=== PATIENT | female | born 1950 | race Caucasian/White ===

== ENCOUNTER 2019-01-31 14:35 | Emergency (ER) | payer MEDICARE, OTHER ==
[2019-01-31] MEDS ORDERED: LORATADINE 10 MG TABLET PO ONE (14:58)
[2019-01-31] MEDS ORDERED: PSEUDOEPHEDRINE HCL 30 MG TABLET PO ONE (14:58)
[2019-01-31] MEDS ORDERED: GUAIFENESIN 600 MG TABLET.SA PO ONE (14:58)
[2019-01-31] MEDS ORDERED: ACETAMINOPHEN 325 MG TABLET PO ONE (14:58)
[2019-01-31 14:59] VITALS: BP 137/65
--- NOTE | 2019-01-31 15:03 | ER Document Report ---
ED ENT - General Chief Complaint: Sinus Pain Stated Complaint: POSSIBLE SINUS INFECTION Time Seen by Provider: 01/31/19 14:49 Mode of Arrival: Ambulatory Information source: Patient Notes: 68-year-old female presents to ED for complaint of cough cold congestion sinus pressure times 2 days. She denies any fevers. She is alert oriented respirations regular and unlabored speaking in full sentences in no acute distress. States she has a history of sinus infections and she knows that she is got an sinus infection and needs antibiotics at this time. I have explained to her that it is a viral infection and that antibiotics will just cause side effects to include nausea vomiting or diarrhea. I have treated her with Claritin 10 mg, Sudafed 30 mg, Mucinex 600 mg, and Tylenol 650 mg by mouth. I have instructed her to follow-up with her primary doctor or return to the ED for any increase or change in symptoms. - HPI Patient complains to provider of: Nose problem, Other - Sinus pressure Onset: Yesterday Onset/Duration: Gradual Quality of pain: Achy, Other - Pressure Severity: Moderate Pain Level: 2 Context: Recent Illness Location of pain: Nose, Sinus Associated symptoms: Congestion, Cough, Runny nose, Sinus pain, Sinus drainage Similar symptoms previously: Yes Recently seen / treated by doctor: No - Related Data Allergies/Adverse Reactions: No Known Allergies Allergy (Verified 01/31/19 14:58) Past Medical History - General Information source: Patient - Social History Smoking Status: Never Smoker Frequency of alcohol use: None Drug Abuse: None Lives with: Family Family History: Reviewed & Not Pertinent Patient has suicidal ideation: No Patient has homicidal ideation: No - Past Medical History Cardiac Medical History: Reports: None Pulmonary Medical History: Reports: None EENT Medical History: Reports: None Neurological Medical History: Reports: None Endocrine Medical History: Reports: Hx Hypothyroidism Renal/ Medical History: Reports: None Malignancy Medical History: Reports: None GI Medical History: Reports: None Musculoskeletal Medical History: Reports None Skin Medical History: Reports None Psychiatric Medical History: Reports: None Traumatic Medical History: Reports: None Infectious Medical History: Reports: None Surgical Hx: Negative Past Surgical History: Reports: None - Immunizations Immunizations up to date: Yes Hx Diphtheria, Pertussis, Tetanus Vaccination: Yes Review of Systems - Review of Systems Constitutional: No symptoms reported EENT: Nose discharge, Sinus pressure, Sinus discharge Cardiovascular: No symptoms reported Respiratory: Cough Gastrointestinal: No symptoms reported Genitourinary: No symptoms reported Female Genitourinary: No symptoms reported Musculoskeletal: No symptoms reported Skin: No symptoms reported Hematologic/Lymphatic: No symptoms reported Neurological/Psychological: No symptoms reported -: Yes All other systems reviewed and negative Physical Exam - Vital signs Vitals: Temp Pulse Resp BP Pulse Ox 98.7 F 83 16 166/84 H 99 01/31/19 14:40 01/31/19 14:40 01/31/19 14:40 01/31/19 14:40 01/31/19 14:40 Interpretation: Normal - General General appearance: Appears well, Alert - HEENT Head: Normocephalic, Atraumatic Eyes: Normal Pupils: PERRL Ears: Normal External canal: Normal Tympanic membrane: Normal Sinus: Frontal, Mastoid, Maxillary, Tenderness Nasal: Purulent discharge, Swelling Mouth/Lips: Normal Mucous membranes: Normal Pharynx: Post nasal drainage Neck: Normal - Respiratory Respiratory status: No respiratory distress Chest status: Nontender Breath sounds: Nonproductive cough Chest palpation: Normal - Cardiovascular Rhythm: Regular Heart sounds: Normal auscultation Murmur: No - Abdominal Inspection: Normal Distension: No distension Bowel sounds: Normal Tenderness: Nontender Organomegaly: No organomegaly - Back Back: Normal, Nontender - Extremities General upper extremity: Normal inspection, Nontender, Normal color, Normal ROM, Normal temperature General lower extremity: Normal inspection, Nontender, Normal color, Normal ROM, Normal temperature, Normal weight bearing. No: Deanna's sign - Neurological Neuro grossly intact: Yes Cognition: Normal Orientation: AAOx4 Licha Coma Scale Eye Opening: Spontaneous Licha Coma Scale Verbal: Oriented Jolo Coma Scale Motor: Obeys Commands Licha Coma Scale Total: 15 Speech: Normal Motor strength normal: LUE, RUE, LLE, RLE Sensory: Normal - Psychological Associated symptoms: Normal affect, Normal mood - Skin Skin Temperature: Warm Skin Moisture: Dry Skin Color: Normal Course - Re-evaluation Re-evalutation: 01/31/19 15:06 After performing a Medical Screening Examination, I estimate there is LOW risk for ACUTE CORONARY SYNDROME, RESPIRATORY FAILURE, SEPSIS OR MENINGITIS, thus I consider the discharge disposition reasonable. I have reevaluated this patient multiple times and no significant life threatening changes are noted. The patient and I have discussed the diagnosis and risks, and we agree with discharging home with close follow-up. We also discussed returning to the E mergency Department immediately if new or worsening symptoms occur. We have discussed the symptoms which are most concerning (e.g., changing or worsening pain, trouble swallowing or breathing, neck stiffness, fever) that necessitate immediate return. 01/31/19 15:08 Patient refused the Sudafed ordered so it was thrown away. She did take the Claritin, Mucinex, and Tylenol. She was not happy that she did not get antibiotics and stated that she always gets antibiotics when she goes to the doctor for her sinus pressure. She is afebrile and has had cough and cold symptoms for 2 days. - Vital Signs Vital signs: Temp Pulse Resp BP Pulse Ox 98.7 F 83 16 137/65 H 99 01/31/19 14:40 01/31/19 14:40 01/31/19 14:40 01/31/19 14:58 01/31/19 14:40 Discharge - Discharge Clinical Impression: URI (upper respiratory infection) Qualifiers: URI type: unspecified viral URI Qualified Code(s): J06.9 - Acute upper respiratory infection, unspecified Condition: Stable Disposition: HOME, SELF-CARE Instructions: Family Physicians / Practices Additional Instructions: UPPER RESPIRATORY ILLNESS: You have a viral infection of the respiratory passages -- a "cold." This common infection causes nasal congestion, drainage, and often sore throat and cough. It is highly contagious. The disease usually lasts about 10 to 14 days. There is no "cure" for the viral infection -- it must run its course. If there is a complication, such as bacterial infection in the nose, sinuses, middle ear, or bronchial tubes, antibiotics may be required. The antibiotics won't affect the virus. Drink plenty of fluids. A humidifier may help. An expectorant medication or decongestant may make you more comfortable. Use acetaminophen or ibuprofen for fever or aches. See the doctor if fever persists over two days, if there is any significant worsening of your symptoms, or if you simply fail to improve as expected. USE OF ACETAMINOPHEN (Tylenol): Acetaminophen may be taken for pain relief or fever control. It's much safer than aspirin, offering a wider range of "safe" dosages. It is safe during . Some brand names are Tylenol, Panadol, Datril, Anacin 3, Tempra, and Liquiprin. Acetaminophen can be repeated every four hours. The following are maximum recommended dosages: >89 pounds or adults 650 mg to 900 mg Acetaminophen can be repeated every four hours. Maximum dose not to exceed 4000 mg a day. You have been treated with Claritin 10 mg, Sudafed 30 mg, Mucinex 600 mg, and Tylenol 650 mg by mouth for your cough cold congestion. You have a viral upper respiratory infection. There is no signs of a bacterial infection at this time. You have just been sick for 2 days. Usually it takes at least a week to 10 days before becomes bacterial. Please follow-up with your primary care doctor at a local urgent care or the emergency room if you have any other concerns. FOLLOW-UP CARE: If you have been referred to a physician for follow-up care, call the physicians office for an appointment as you were instructed or within the next two days. If you experience worsening or a significant change in your symptoms, notify the physician immediately or return to the Emergency Department at any time for re-evaluation. Forms: Elevated Blood Pressure
== END 2019-01-31 15:08 | disposition home or self-care (01) ==
LOC: ER 14:35
DX: J06.9 Acute upper respiratory infection, unspecified (principal); R51 Headache; R05 Cough; R09.81 Nasal congestion; R11.2 Nausea with vomiting, unspecified; R19.7 Diarrhea, unspecified; R09.89 Other specified symptoms and signs involving the circulatory and respiratory systems; J34.89 Other specified disorders of nose and nasal sinuses; Z79.899 Other long term (current) drug therapy
CPT/HCPCS: 99283; A9270 ×3